=== PATIENT | female | born 1955 | race Two or more races ===

== ENCOUNTER 2019-03-22 18:04 | Inpatient (IN) | payer OTHER ==
[~2019-03-22] VITALS: Ht 157.5 cm; Wt 54.4 kg
--- NOTE | 2019-03-22 18:10 | NUR ---
[id number], FROM HOME, C/O WEAKNESS, FAILURE TO THRIVE, DEPRESSION, DENIES SI/HI, TO ER BED 9, HOOKED TO MONITOR, CHANGED TO DR SHAZIA IZAGUIRRE AT BEDSIDE
[2019-03-22 18:46] LABS: BASOPHILS # (AUTO) 0.1 /CMM (0.0-0.2); BASOPHILS % (AUTO) 0.3 % (0.0-2.0); EOSINOPHILS % (AUTO) 0.1 % (0.0-6.0); HEMATOCRIT 26 % (33-45); HEMOGLOBIN 8.5 g/dL (11.5-14.8); LYMPHOCYTES # (AUTO) 1.5 /CMM (0.8-4.8); LYMPHOCYTES % (AUTO) 6.3 % (20.0-44.0); MEAN CORPUSCULAR HGB CONC 33 g/dl (31.0-36.0); MEAN CORPUSCULAR VOLUME 106 fL (82-100); MONOCYTES # (AUTO) 0.6 /CMM (0.1-1.30); MONOCYTES % (AUTO) 2.6 % (2.0-12.0); NEUTROPHILS % (AUTO) 90.7 % (43.0-81.0); PLATELET COUNT (AUTO) 279 /CMM (150-450); RED BLOOD CELL COUNT(AUTO) 2.41 MIL/uL (4.0-5.2); WHITE BLOOD COUNT (AUTO) 23.1 K/uL (4.3-11.0)
[2019-03-22 19:18] LABS: ALANINE AMINOTRANSFERASE 13 U/L (12-78); ALBUMIN 2.2 g/dL (3.4-5.0); ALCOHOL, BLOOD < 3 mg/dL (0-0); ALKALINE PHOSPHATASE 120 U/L (46-116); ASPARTATE AMINOTRANSFERASE 19 U/L (15-37); BILIRUBIN,DIRECT 0.2 mg/dL (0.0-0.2); BILIRUBIN,TOTAL 0.3 mg/dL (0.2-1.0); CARBON DIOXIDE 11 mmol/L (21-32); CHLORIDE 88 mmol/L (98-107); GLUCOSE 89 mg/dL (74-106); POTASSIUM 4.9 mmol/L (3.5-5.1); SODIUM SERUM 124 mmol/L (136-145); TOTAL PROTEIN, SERUM 6.7 g/dL (6.4-8.2)
[2019-03-22 19:21] LABS: UREA NITROGEN, BLOOD 126 mg/dL (7-18)
--- NOTE | 2019-03-22 19:21 | NUR ---
URINE SAMPLE SENT TO LAB
[2019-03-22 19:22] LABS: CREATININE 8.4 mg/dL (0.6-1.3); SALICYLATE 1.9 mg/dL (2.8-20.0)
[2019-03-22] MEDS ORDERED: IV NS 0.9% 1,000 ML BAG IV ONE ×2 (19:30→21:30)
[2019-03-22] MEDS ORDERED: CEFTRIAXONE 1GM BAG (ER ONLY) 1 GM/50 ML PIGGYBACK IV ONE (19:30)
--- NOTE | 2019-03-22 19:30 | NUR ---
REPORT GIVEN TO OTILIO ALFORD FOR AMY
[2019-03-22 19:34] LABS: APPEARANCE,URINE Turbid (CLEAR); BILIRUBIN,URINE SMALL (NEGATIVE); BLOOD, URINE Large Ery/uL (NEGATIVE); COLOR,URINE Dark (YELLOW); KETONES,URINE 15 (NEGATIVE); LEUKOCYTE ESTERASE ,URINE Large (NEGATIVE); NITRITE, URINE Negative (NEGATIVE); PROTEIN,URINE >=300 mg/dl (NEGATIVE); UGLUCOSE Negative (NEGATIVE); UROBILINOGEN,URINE 0.2 EU/dL (0.2)
[2019-03-22 19:41] LABS: BAND % (MANUAL) 4 % (0.0-5.0); LYMPHOCYTES % (MANUAL) 6 % (16-48); MONOCYTES % (MANUAL) 2 % (0-11.0); NEUTROPHILS % (MANUAL) 88 (42-76)
[2019-03-22 19:45] LABS: ACETAMINOPHEN 0 ug/ml (10-30)
[2019-03-22] MEDS ORDERED: IV NS 0.9% 1,000 ML IV PRN (19:54)
[2019-03-22] MEDS ORDERED: CEFTRIAXONE 1GM BAG (ER ONLY) 50 ML IV ONE (19:56)
[2019-03-22] MEDS ORDERED: ACETAMINOPHEN 325 MG TABLET PO PRN (20:00)
[2019-03-22] MEDS ORDERED: ZOLPIDEM TARTRATE 5 MG TABLET PO PRN (20:00)
[2019-03-22] MEDS ORDERED: HYDROCODONE/APAP 5/325MG 1 EACH TABLET PO PRN (20:00)
[2019-03-22] MEDS ORDERED: Z GUARD REMEDY 2 OZ OINT TP PRN (20:00)
[2019-03-22] MEDS ORDERED: ONDANSETRON HCL/PF 4 MG/2 ML VIAL IVP PRN (20:00)
[2019-03-22 20:08] LABS: BACTERIA,URINE Few /HPF (None Seen); RBC,URINE 51-80 /HPF (0-2); WBC,URINE 51-80 /HPF (0-3)
--- NOTE | 2019-03-22 20:14 | NUR ---
CALLED DR BACON, LEFT VOICEMAIL.
--- NOTE | 2019-03-22 20:35 | NUR ---
MADE AWARE OF BP 85/54. NS STILL RUNNING. WILL REASSESS AFTER FLUID INFUSION
--- NOTE | 2019-03-22 20:36 | NUR ---
PAGED [facility]
--- NOTE | 2019-03-22 20:38 | NUR ---
BED ASSIGNMENT 314-1
[2019-03-22] MEDS ORDERED: METO25TA6 PO (20:50)
[2019-03-22] MEDS ORDERED: HYDR50TA3 PO (20:50)
[2019-03-22] MEDS ORDERED: VANCOMYCIN 1 GM in IV D5W 250 ML IV SCH (21:00)
[2019-03-22] MEDS ORDERED: NOREPINEPHRINE 8 MG in IV D5W 500 ML IV PRN (21:30)
--- NOTE | 2019-03-22 21:33 | NUR ---
PICC LINE NURSE AT BEDSIDE FOR INSERTION. CONSENT OBTAINED FORM PT AND .
--- NOTE | 2019-03-22 21:37 | NUR ---
ICU 253
--- NOTE | 2019-03-22 21:55 | NUR ---
CAROLINE, PICC NURSE APPROVED OF PICC LINE USE. PLACEMENT CONFIRMED BY CAROLINE
[2019-03-22] MEDS ORDERED: NOREPINEPHRINE 4 MG/4 ML AMPUL IV ONE (21:57)
--- NOTE | 2019-03-22 22:40 | NUR ---
PT BP: 98/59 ON LEVEPHED 8 MCG/MIN
--- NOTE | 2019-03-22 22:54 | NUR ---
REPORT GIVEN TO PAOLO RN FOR AMY. PT TO ICU 253
--- NOTE | 2019-03-22 23:18 | NUR ---
SPOKE WITH DR. BACON OVER THE OHONE REGARDING ADMISSION ORDERS. MD ORDERED AND APPROVED TO CONTINUE ORDERS PLACED BY DR. MARTELL.
[2019-03-22] MEDS: NOREPINEPHRINE 8 MG in IV D5W 500 ML IV PRN (23:41)
[2019-03-22] MEDS: IV NS 0.9% 1,000 ML IV PRN (23:42)
[2019-03-22] MEDS: MIRTAZAPINE 15 MG TABLET PO SCH (23:43)
--- NOTE | 2019-03-22 23:45 | NUR ---
PT TRANSPORTED TO UNIT ON [facility] EMT AND RN AT BEDSIDE W/ ACLS PROTOCOL. NAD DURING TRASNPORT.
--- NOTE | 2019-03-22 23:46 | NUR ---
REFRIGERATION BRAZER/SOLDERERLABORATORY ANIMAL FACILITY SUPERVISOR NOTES RECEIVED PATIENT FROM ER VIA [facility], BEING ADMITTED FOR SEPSIS, UTI, RENAL FAILURE. PATIENT IS AWAKE, ALERT AND ORIENTED X4, ABLE TO VERBALIZE NEEDS, DROWSY. PATIENT DENIES ANY PAIN OR DISCOMFORT AT THIS TIME. ON O2 VIA NC @ 2LPM, TOLERATING WELL, NO SIGNS AND SYMPTOMS OF RESPIRATORY DISTRESS. BEDSIDE LAWN CARE WORKER READS SINUS RHYTHM, HR CURRENTLY 80 BPM. SKIN INTACT. RIGHT UPPER ARM PICC (DOUBLE LUMEN) PATENT AND INTACT, LEVOPHED RUNNING @ 8MCG/MIN. PLAN OF CARE DISCUSSED WITH THE PATIENT, WHOM VERBALIZES UNDERSTANDING REGARDING THE PLAN OF CARE.
[2019-03-23] VITALS (64 sets, daily range): BP systolic 81–112; BP diastolic 43–66
[2019-03-23 04:17] LABS: BASOPHILS # (AUTO) 0.2 /CMM (0.0-0.2); BASOPHILS % (AUTO) 0.7 % (0.0-2.0); EOSINOPHILS % (AUTO) 0.1 % (0.0-6.0); HEMATOCRIT 25 % (33-45); LYMPHOCYTES # (AUTO) 0.7 /CMM (0.8-4.8); LYMPHOCYTES % (AUTO) 2.9 % (20.0-44.0); MEAN CORPUSCULAR HGB CONC 33 g/dl (31.0-36.0); MEAN CORPUSCULAR VOLUME 108 fL (82-100); MONOCYTES # (AUTO) 0.6 /CMM (0.1-1.30); MONOCYTES % (AUTO) 2.5 % (2.0-12.0); NEUTROPHILS # (AUTO) 23.2 /CMM (1.8-8.9); NEUTROPHILS % (AUTO) 93.8 % (43.0-81.0); PLATELET COUNT (AUTO) 271 /CMM (150-450); RED BLOOD CELL COUNT(AUTO) 2.26 MIL/uL (4.0-5.2); WHITE BLOOD COUNT (AUTO) 24.7 K/uL (4.3-11.0)
[2019-03-23 04:33] LABS: CALCIUM, SERUM 6.5 mg/dL (8.5-10.1); CREATININE 7.2 mg/dL (0.6-1.3); MAGNESIUM 1.3 mg/dL (1.8-2.4); PHOSPHORUS 5.9 mg/dL (2.5-4.9); POTASSIUM 4.1 mmol/L (3.5-5.1)
[2019-03-23 04:49] LABS: THYROID STIMULATING HORMONE 1.285 uIU/mL (0.358-3.74)
[2019-03-23 05:28] LABS: BAND % (MANUAL) 1 % (0.0-5.0); LYMPHOCYTES % (MANUAL) 2 % (16-48); MONOCYTES % (MANUAL) 4 % (0-11.0); NEUTROPHILS % (MANUAL) 93 (42-76)
[2019-03-23] MEDS ORDERED: FEE PK DOSING 1 MIN EA MC ONE (06:20)
--- NOTE | 2019-03-23 07:00 | NUR ---
GARBAGE PERSON CLOSING NOTES PATIENT RESTING COMFORTABLY IN BED. REMAINS ON LEVOPHED GTT, CURRENTLY AT 11 MCG/MIN. PATIENT DENIES ANY PAIN OR DISCOMFORT. WILL ENDORSE TH EPATIENT TO THE AM SHIFT NURSE FOR CONTINUITY OF CARE
--- NOTE | 2019-03-23 07:45 | NUR ---
ICU/RN AM SHIFT INITIAL NOTES RECEIVED PT ASLEEP IN BED, EASILY AROUSED, PT A/O X 4, NO ACUTE CHANGE OF CONDITION OR FEVER NOTED, PT DENIES ANY SYMPTOMS. ON 2L O2 VIA N/C SATURATING @ 99%, LUNG SOUNDS DIMINISHED, RESPIRATIONS EVEN & UNLABORED. ON TELE MONITORING, SINUS RHYTHM, HR 71. PT ON ON GOING INFUSION OF LEVOPHED @ 11MCG/MIN WITH BP SUSTAINING 111/50, ALSO INFUSING NS @ 125CC/HR, PICC LINE IS PATENT WITH NO S/S OF INFECTION. PT IS COMFORTABLE AT THIS TIME, PT IS RE-ORIENTED TO HER SURROUNDINGS. SCHEDULED AM MEDS TO BE GIVEN. CL WITHIN REACHED AND SAFETY MAINTAINED. ON GOING MONITORING.
[2019-03-23] MEDS: IV NS 0.9% 1,000 ML IV PRN ×2 (07:47→17:11)
[2019-03-23] MEDS: PANTOPRAZOLE 40 MG TABLET.DR PO SCH (07:48)
--- NOTE | 2019-03-23 08:03 | NUR ---
ICU/RN ROUNDS - DR. BACON UPDATED PT'S CONDITION. PT SEEN & EXAMINED BY DR. BACON. NO NEW ORDERS RECEIVED AT THIS TIME. ON GOING MONITORING. Addendum: 03/23/19 at 0819 by CHINMAY ALVAREZ RN ADDENDUM: RECEIVED VERBAL ORDER FROM DR. BACON TO PLACE VEGA CATHETER TO PT. NOTED AND CARRIED OUT.
[2019-03-23] MEDS ORDERED: CEFEPIME 1 GM in IV D5W 50 ML IV SCH ×2 (08:30→18:00)
[2019-03-23] MEDS: Magnesium 1GM/D5W 100ML PREMIX 100 ML IV SCH ×2 (09:27→11:17)
[2019-03-23 09:43] LABS: CREATININE, URINE 45.2 MG/DL (30.0-125.0)
[2019-03-23 09:48] LABS: APPEARANCE,URINE Cloudy (CLEAR); BILIRUBIN,URINE Negative (NEGATIVE); BLOOD, URINE Large Ery/uL (NEGATIVE); COLOR,URINE Yellow (YELLOW); KETONES,URINE Negative (NEGATIVE); LEUKOCYTE ESTERASE ,URINE Small (NEGATIVE); NITRITE, URINE Negative (NEGATIVE); PH,URINE 5.5 (5.0-8.0); PROTEIN,URINE >=300 mg/dl (NEGATIVE); UGLUCOSE Negative (NEGATIVE); UROBILINOGEN,URINE 0.2 EU/dL (0.2)
[2019-03-23 09:59] LABS: SQUAMOUS EPITHELIAL CELL,UR Few /HPF (None Seen); URINE AMORPHOUS URATE Moderate /HPF (None Seen)
[2019-03-23 10:00] LABS: BACTERIA,URINE Few /HPF (None Seen)
[2019-03-23] MEDS: NOREPINEPHRINE 8 MG in IV D5W 500 ML IV PRN ×2 (10:48→20:40)
[2019-03-23 12:20] LABS: EOSINOPHIL,URINE None Seen
--- NOTE | 2019-03-23 16:00 | NUR ---
ICU/RN PM ROUNDS PM CARE PROVIDED, NO ACUTE CHANGE OF CONDITION, BP SUSTAINING. ON GOING MONITORING.
[2019-03-23] MEDS: LACTOBACILLUS RHAMNOSUS GG 1 EACH CAP.SPRINK PO SCH (17:11)
--- NOTE | 2019-03-23 19:25 | NUR ---
ICU/RN AM SHIFT END NOTES ALL NEEDS MET. NO ACUTE CHANGE OF CONDITION NOTED DURING THE SHIFT. IMPROVED URINE OUTPUT, APPETITE INCREASED AT DINNER TIME. PT ENDORSED TO PM NURSE TO CONTINUE CARE. CL WITHIN REACHED AND SAFETY MAINTAINED.
--- NOTE | 2019-03-23 19:30 | NUR ---
BRAKE ASSEMBLER INITIAL SHIFT NOTES RECEIVED PATIENT IN BED, AWAKE, ALERT AND ORIENTED X4, BUT DROWSY. PATIENT ABLE TO VERBALIZE NEEDS. BREATHING EVEN AND NONLABORED, TOLERATING O2 VIA NC @ 2LPM, NO RESPIRATORY DISTRESS NOTED. ON LEVOPHED GTT 13MCG/MIN, NS @ 125ML/HR. SINUS RHYTHM ON MONITOR. VEGA CATHETER PATENT AND INTACT, DRAINING CLOUDY YELLOW URINE VIA GRAVITY. WILL CONTINUE TO CLOSELY MONITOR
[2019-03-23] MEDS ORDERED: CEFTRIAXONE 1 G in IV D5W 50 ML IV SCH (20:00)
[2019-03-23] MEDS: MIRTAZAPINE 15 MG TABLET PO SCH (22:45)
[2019-03-23] MEDS: CEFEPIME 1 GM in IV D5W 50 ML IV SCH (22:45)
[2019-03-24] VITALS (50 sets, daily range): BP systolic 93–134; BP diastolic 44–65
--- NOTE | 2019-03-24 | NUR ---
BUY BOAT OPERATOR NOTES PATIENT RESTING IN BED, COMFORTABLE AT THIS TIME, DENIES ANY PAIN OR DISCOMFORT. REMAINS ON LEVOPHED GTT @ 13MCG/MIN. WILL CONTINUE TO CLOSELY MONITOR
[2019-03-24] MEDS: IV NS 0.9% 1,000 ML IV PRN ×2 (02:02→18:21)
--- NOTE | 2019-03-24 04:00 | NUR ---
LEGAL INVESTIGATOR NOTES OFFERED BED BATH, BUT PATIENT POLITELY REFUSED, STATING "I'M COLD RIGHT NOW." DIAPER CLEAN AND DRY AT THIS TIME, WARM BLANKET GIVEN, PATIENT REPOSITIONED FOR COMFORT
[2019-03-24 04:26] LABS: BASOPHILS % (AUTO) 0.2 % (0.0-2.0); EOSINOPHILS % (AUTO) 0.1 % (0.0-6.0); HEMATOCRIT 24 % (33-45); HEMOGLOBIN 7.8 g/dL (11.5-14.8); LYMPHOCYTES # (AUTO) 0.7 /CMM (0.8-4.8); LYMPHOCYTES % (AUTO) 3.8 % (20.0-44.0); MEAN CORPUSCULAR HGB CONC 33 g/dl (31.0-36.0); MEAN CORPUSCULAR VOLUME 108 fL (82-100); MONOCYTES # (AUTO) 0.4 /CMM (0.1-1.30); MONOCYTES % (AUTO) 2.1 % (2.0-12.0); NEUTROPHILS # (AUTO) 17.5 /CMM (1.8-8.9); NEUTROPHILS % (AUTO) 93.8 % (43.0-81.0); PLATELET COUNT (AUTO) 262 /CMM (150-450); WHITE BLOOD COUNT (AUTO) 18.6 K/uL (4.3-11.0)
[2019-03-24 04:50] LABS: BILIRUBIN,TOTAL 0.2 mg/dL (0.2-1.0); CALCIUM, SERUM 6.4 mg/dL (8.5-10.1); CREATININE 6.4 mg/dL (0.6-1.3); MAGNESIUM 1.7 mg/dL (1.8-2.4); POTASSIUM 3.6 mmol/L (3.5-5.1); TOTAL PROTEIN, SERUM 5.1 g/dL (6.4-8.2)
[2019-03-24 04:57] LABS: ALBUMIN 1.4 g/dL (3.4-5.0)
[2019-03-24 05:20] LABS: URIC ACID 6.8 mg/dL (2.6-7.2)
[2019-03-24] MEDS: NOREPINEPHRINE 8 MG in IV D5W 500 ML IV PRN ×2 (06:01→16:11)
--- NOTE | 2019-03-24 07:00 | NUR ---
DISTRIBUTION CENTER ADMINISTRATOR CLOSING NOTES NO ACUTE CHANGES THROUGHOUT THE SHIFT. PATIENT REMAINS ON LEVOPHED GTT @ 13MCG/MIN. URINE OUTPUT = 500ML. WILL ENDORSE THE PATIENT TO THE AM SHIFT NURSE FOR CONTINUITY OF CARE
--- NOTE | 2019-03-24 07:45 | NUR ---
ICU/RN AM SHIFT INITIAL NOTES RECEIVED PT AWAKE IN BED, PT A/O X 4, NO ACUTE CHANGE OF CONDITION NOTED, PT DENIES ANY SYMPTOMS. ON 2L O2 VIA N/C SATURATING @ 98%, LUNG SOUNDS CLEAR, RESPIRATIONS EVEN & UNLABORED. ON TELE MONITORING, SINUS RHYTHM, HR 68. PT ON ON GOING INFUSION OF LEVOPHED @ 13CG/MIN WITH BP SUSTAINING, ALSO INFUSING NS @ 125CC/HR, PICC LINE IS PATENT WITH NO S/S OF INFECTION. VEGA CATHETER INTACT WITH CLOUDY YELLOW URINE OUTPUT. PT IS COMFORTABLE AT THIS TIME, SCHEDULED AM MEDS TO BE GIVEN. CL WITHIN REACHED AND SAFETY MAINTAINED. ON GOING MONITORING.
--- NOTE | 2019-03-24 08:10 | NUR ---
ICU/RN ROUNDS - DR. BACON PT SEN & EXAMINED BY DR. BACON. WITH VERBAL ORDERS RECEIVED TO GIVE PT 1 UNIT OF PRBC, FLUID RESTRICTION OF 1 LITER PER DAY AND TO KEEP SBP ABOVE 95. ORDERS NOTED AND CARRIED.
[2019-03-24] MEDS: PANTOPRAZOLE 40 MG TABLET.DR PO SCH (08:36)
[2019-03-24] MEDS: LACTOBACILLUS RHAMNOSUS GG 1 EACH CAP.SPRINK PO SCH ×2 (08:36→18:22)
[2019-03-24] MEDS: Magnesium 1GM/D5W 100ML PREMIX 100 ML IV SCH ×2 (08:36→10:54)
[2019-03-24] MEDS: CEFEPIME 1 GM in IV D5W 50 ML IV SCH ×2 (09:38→21:07)
--- NOTE | 2019-03-24 17:30 | NUR ---
ICU/RN TRANSFUSION PT TOLERATED BLOOD TRANSFUSION, NO ADVERSE REACTION NOTED DURING AND AFTER INFUSION.
--- NOTE | 2019-03-24 19:00 | NUR ---
RECEIVED PATIENT ASLEEP BUT EASILY AWAKENS,ALERT, CONVERSES,COHERENT AND APPROPRIATE ,SPEAKS VERY SOFTLY, VERY WEAK BUT ABLE TO MOVE ALL EXTREMITIES.NOT IN ANY DISTRESS, DENIES ANY PAIN. ON LEVOPHED DRIP FOR BP SUPPORT ( MAINTAIN SBP =95) ,TITRATE TOLERATED NOW AT 13 MCG/MIN. COMFORT CARE DONE,NEEES ATTENDED.
--- NOTE | 2019-03-24 19:21 | NUR ---
ICU/RN AM SHIFT END NOTES ALL NEEDS MET. NO ADVERSE CHANGE OF CONDITION NOTED DURING THE SHIFT. PT SLOWLY PROGRESSIVELY IMPROVING. ENDORSED TO PM NURSE TO CONTINUE CARE.
[2019-03-24] MEDS: MIRTAZAPINE 15 MG TABLET PO SCH (21:08)
--- NOTE | 2019-03-24 21:30 | NUR ---
CARE TRANSFERED TO MARY ALFORD.PATIENT REMAINS STABLE.
[2019-03-25] VITALS (61 sets, daily range): BP systolic 93–129; BP diastolic 44–76
[2019-03-25] MEDS: NOREPINEPHRINE 8 MG in IV D5W 500 ML IV PRN (02:06)
[2019-03-25 04:26] LABS: BASOPHILS % (AUTO) 0.1 % (0.0-2.0); EOSINOPHILS % (AUTO) 0.1 % (0.0-6.0); HEMATOCRIT 29 % (33-45); HEMOGLOBIN 9.8 g/dL (11.5-14.8); LYMPHOCYTES # (AUTO) 0.7 /CMM (0.8-4.8); LYMPHOCYTES % (AUTO) 3.5 % (20.0-44.0); MEAN CORPUSCULAR HGB CONC 34 g/dl (31.0-36.0); MEAN CORPUSCULAR VOLUME 103 fL (82-100); MONOCYTES # (AUTO) 0.3 /CMM (0.1-1.30); MONOCYTES % (AUTO) 1.7 % (2.0-12.0); NEUTROPHILS # (AUTO) 19.3 /CMM (1.8-8.9); NEUTROPHILS % (AUTO) 94.6 % (43.0-81.0); PLATELET COUNT (AUTO) 225 /CMM (150-450); RED BLOOD CELL COUNT(AUTO) 2.83 MIL/uL (4.0-5.2); WHITE BLOOD COUNT (AUTO) 20.4 K/uL (4.3-11.0)
[2019-03-25 04:41] LABS: CALCIUM, SERUM 6.7 mg/dL (8.5-10.1); CREATININE 5.4 mg/dL (0.6-1.3); POTASSIUM 3.2 mmol/L (3.5-5.1)
--- NOTE | 2019-03-25 07:45 | NUR ---
ICU/RN INITIAL NOTES,AM RECEIVED BEDSIDE REPORT. PT AWAKE, ALERT, FOLLOWS COMMANDS. ON 2L O2 VIA N/C, RESPIRATIONS EVEN & UNLABORED. ON TELE MONITORING, SINUS RHYTHM. PT ON ON GOING INFUSION OF LEVOPHED @ 8 MCG/MIN WITH BP SUSTAINING, ALSO INFUSING NS @ 100CC/HR, PICC LINE IS PATENT WITH NO S/S OF INFECTION. VEGA CATHETER INTACT WITH CLOUDY YELLOW URINE OUTPUT. PT IS COMFORTABLE AT THIS TIME, ALL NEEDS WILL BE ATTENDED TO, CL WITHIN REACHED AND SAFETY MAINTAINED. ON GOING MONITORING.
[2019-03-25] MEDS: LACTOBACILLUS RHAMNOSUS GG 1 EACH CAP.SPRINK PO SCH ×2 (08:02→16:45)
[2019-03-25] MEDS: PANTOPRAZOLE 40 MG TABLET.DR PO SCH (08:02)
[2019-03-25 08:06] LABS: *SPE A/G RATIO 0.6 (0.7-1.7); *SPE ALBUMIN 1.5 g/dL (2.9-4.4); *SPE ALPHA-1-GLOBULIN 0.3 g/dL (0.0-0.4); *SPE BETA GLOBULIN 0.9 g/dL (0.7-1.3); *SPE GLOBULIN, TOTAL 2.6 g/dL (2.2-3.9); *SPE M-SPIKE Not Observed g/dL (Not Observed); *SPEGAMMA GLOBULIN 0.3 g/dL (0.4-1.8)
[2019-03-25] MEDS ORDERED: POTASSIUM CHLORIDE 20 MEQ TAB.PRT.SR PO ONE (09:00)
[2019-03-25] MEDS: CEFEPIME 1 GM in IV D5W 50 ML IV SCH ×2 (09:07→22:02)
[2019-03-25] MEDS: SODIUM CHLORIDE 1000 MG TABLET PO SCH ×3 (09:17→16:45)
--- NOTE | 2019-03-25 11:00 | NUR ---
ICU/RN: PER MD ORDERS ABG DONE. RESULTS RELAYED TO . NO NEW ORDERS AT THIS TIME. WILL CONTINUE TO MONITOR.
--- NOTE | 2019-03-25 11:02 | NUR ---
RT NOTE ABG COMPLETED @ 10:50 AND ANALYZED @ 10:53 PATIENT WAS LETHARGIC AND WAS ON OXYGEN VIA NASAL CANNULA @ 2.5 L ABG RESULTS WERE PH 7.1 CO2 15.5 PO2 107 HCO-3 5.9 BE -20.1 RN WAS NOTIFIED.
[2019-03-25] MEDS: IV NS 0.9% 1,000 ML IV PRN (12:23)
[2019-03-25 14:07] LABS: PTH, INTACT 179 pg/mL (15-65)
--- NOTE | 2019-03-25 19:02 | NUR ---
ICU/RN ENDING NOTES,AM BEDSIDE REPORT WILL ENDORSED TO NIGHT NURSE FOR AMY. ALL NEEDS ATTENDED TO, SAFETY MEASURES TAKEN. PT ON NASAL CANULA, NO DISTRESS, TOLERATING WELL. SINUS ON TELE. BED IN LOW POSITION, SIDE RAILS UP, CALL LIGHT WITHIN REACH. WILL CONTINUE CARE.
--- NOTE | 2019-03-25 20:00 | NUR ---
ICU/RN NOTES RECEIVED PT AWAKE IN BED, PT A/O X 4, NO SOB NO DISTRESS NOTED BREATHING EVEN AND UNLABORED ,NO ACUTE CHANGE OF CONDITION NOTED, PT DENIES ANY SYMPTOMS. ON 2L O2 VIA N/C SATURATING @ 95%, LUNG SOUNDS CLEAR, ON TELE MONITORING, SINUS RHYTHM, HR 75. PT ON IVF NS @ 100CC/HR, PICC LINE IS PATENT WITH NO S/S OF INFECTION. VEGA CATHETER INTACT WITH YELLOW URINE OUTPUT. PT IS COMFORTABLE AT THIS TIME, DUE MEDS TO BE GIVEN. CALL LIGHT WITHIN REACH AND SAFETY MAINTAINED. V/S STABLE AFEBRILE ,CONTINUE TO MONITOR.
[2019-03-25] MEDS ORDERED: VANCOMYCIN 500 MG in IV D5W 100 ML IV SCH (21:00)
[2019-03-25] MEDS ORDERED: MIRTAZAPINE 15 MG TABLET PO SCH (22:00)
[2019-03-26] VITALS (16 sets, daily range): BP systolic 89–122; BP diastolic 43–68
[2019-03-26 04:36] LABS: BASOPHILS % (AUTO) 0.2 % (0.0-2.0); EOSINOPHILS % (AUTO) 0.1 % (0.0-6.0); HEMATOCRIT 27 % (33-45); HEMOGLOBIN 8.9 g/dL (11.5-14.8); LYMPHOCYTES # (AUTO) 0.4 /CMM (0.8-4.8); LYMPHOCYTES % (AUTO) 2.6 % (20.0-44.0); MEAN CORPUSCULAR HGB CONC 33 g/dl (31.0-36.0); MEAN CORPUSCULAR VOLUME 102 fL (82-100); MONOCYTES # (AUTO) 0.3 /CMM (0.1-1.30); NEUTROPHILS # (AUTO) 14.1 /CMM (1.8-8.9); NEUTROPHILS % (AUTO) 95.1 % (43.0-81.0); PLATELET COUNT (AUTO) 179 /CMM (150-450); RED BLOOD CELL COUNT(AUTO) 2.64 MIL/uL (4.0-5.2); WHITE BLOOD COUNT (AUTO) 14.8 K/uL (4.3-11.0)
[2019-03-26 04:56] LABS: CALCIUM, SERUM 6.8 mg/dL (8.5-10.1); CREATININE 4.7 mg/dL (0.6-1.3); MAGNESIUM 1.6 mg/dL (1.8-2.4); POTASSIUM 3.2 mmol/L (3.5-5.1)
[2019-03-26] MEDS: IV NS 0.9% 1,000 ML IV PRN (05:31)
--- NOTE | 2019-03-26 07:22 | NUR ---
ARTIST MODEL NOTES PTS IN BED AWAKE AND RESPONSIVE , ON 2LITERS OF 02 VIA NC , NO SOB NO DISTRESS NOTED , ENDORSE TO MANDO RN FOR CONTINUITY OF CARE.
--- NOTE | 2019-03-26 07:30 | NUR ---
RN NOTES RECEIVED PT ASLEEP IN BED, EASILY AROUSED, PT A/O X 4, ABLE TO RESPOND APPROPRIATELY. ON 2L O2 VIA N/C SATURATING @ 98%, RESPIRATIONS EVEN & UNLABORED. SINUS RHYTHM ON THE TELEMONITOR WITH HR ON THE 90'S AT THIS TIME.DENIES PAIN OR DISCOMFORT AT THIS TIME. PICC LINE ON THE AMBREEN, IN PLACE, DRESSING DRY AND INTACT. NO SIGNS OF INFECTION NOTED. WITH ONGOING NS @ 100CC/HR. VEGA CATETHER IN PLACE AND DRAINING TO CLEAR, TEA COLORED URINE. PATIENT ENCOURAGE TO VERBALIZE FEELINGS AND CONCERNS, CALL FOR HELP/ASSISTANCE. SAFETY MEASURES OBSERVED AND MAINTAINED. CALL LIGHT PLACED WITHIN REACH. WILL CONTINUE TO MONITOR PATIENT AND ANTICIPATE NEEDS
[2019-03-26] MEDS: SODIUM CHLORIDE 1000 MG TABLET PO SCH ×2 (08:33→12:48)
[2019-03-26] MEDS: LACTOBACILLUS RHAMNOSUS GG 1 EACH CAP.SPRINK PO SCH (08:33)
[2019-03-26] MEDS: PANTOPRAZOLE 40 MG TABLET.DR PO SCH (08:33)
[2019-03-26] MEDS ORDERED: POTASSIUM CHLORIDE 20 MEQ TAB.PRT.SR PO ONE (09:30)
[2019-03-26] MEDS: Magnesium 1GM/D5W 100ML PREMIX 100 ML IV SCH ×2 (09:48→11:19)
[2019-03-26] MEDS ORDERED: COSYNTROPIN 0.25 MG/VIAL VIAL IV ONE (10:00)
[2019-03-26] MEDS ORDERED: CEFTRIAXONE 2 G in IV D5W 100 ML IV SCH (10:00)
--- NOTE | 2019-03-26 10:45 | NUR ---
RN NOTES CALLED SON BUT PHONE NUMBER IS NOT ACTIVE. CALLED KAITLYNN HIGGINBOTHAM (DAUGHTER ) WAS ABLE TO OBTAINED CONSENT FOR BLOOD TRANSFUSION AFTER EXPLAINING THE SITUATION. CONSENT VERIFIED WITH PRASHANTH VARELA. Addendum: 03/26/19 at 1128 by MANDO LINO RN ERROR IN CHARTING. INTENDED FOR A DIFFERENT PATIENT
[2019-03-26] MEDS ORDERED: Potassium Chloride 20 MEQ in IV NS 0.9% 1,000 ML IV PRN (11:30)
--- NOTE | 2019-03-26 14:20 | NUR ---
RN NOTES PATIENT BROUGHT TO BRIT WITH [employer] [facility]UITY PER MD'S ORDER AT ROOM 115-1. PATIENT NOT ON ANY FORM OF DISTRESS. NO COMPLAINTS OF PAIN. CALL LIGHT PLACED WITHIN REACH. WILL CONTINUE TO MONITOR PATIENT
--- NOTE | 2019-03-26 17:10 | NUR ---
RN NOTE: RECEIVED AN ORDER FROM DR. BACON THAT THE PATIENT WILL BE TRANSFER TO [facility] DUE TO INSURANCE ISSUE. PATIENT'S DEIDRE MADE AWARE AND WAS GIVEN DETAILS OF THE PATIENT'S DISCHARGE TRANSFER AT THE OTHER HOSPITAL. PER RN CVOR EMILY, PATIENT WAS ACCEPTED AT [facility] AND ACCEPTING MD WAS DR. BACON TO ROOM 237-B. REPORT WAS GIVEN TO PRASHANTH OLMEDO FOR CONTINUITY OF CARE.
--- NOTE | 2019-03-26 17:55 | NUR ---
RN NOTE: PATIENT WAS DISCHARGE TO [facility] VIA AMBULANCE ACCOMPANIED BY 3 casting repairer OF [facility]IA GURNEY. PATIENT SIGNED ALL HER DISCHARGE PAPERWORK AND ALL BELONGINGS WERE RELEASED WITH HER INCLUDING THE FULL DENTURE WITH THE PATIENT. DEIDRE WAS INFORMED VIA TELEPHONE CALL REGARDING THE TRANSFER TO ANOTHER [facility].
== END 2019-03-26 18:00 | disposition short-term general hospital (02) | DRG 871 ==
LOC: ER 18:07 → ICU 21:41 → MEDSG1 03-26 14:10
PROVIDERS: ATTEND Internal Medicine
PROC: B548ZZA Ultrasonography of Superior Vena Cava, Guidance (ICD-10-PCS; principal; 2019-03-22)
PROC: 02HV33Z Insertion of Infusion Device into Superior Vena Cava, Percutaneous Approach (ICD-10-PCS; principal; 2019-03-22)
PROC: 30233N1 Transfusion of Nonautologous Red Blood Cells into Peripheral Vein, Percutaneous Approach (ICD-10-PCS; 2019-03-24)
DX: A41.51 Sepsis due to Escherichia coli [E. coli] (principal); R65.21 Severe sepsis with septic shock; N17.0 Acute kidney failure with tubular necrosis; E43 Unspecified severe protein-calorie malnutrition; N39.0 Urinary tract infection, site not specified; E87.1 Hypo-osmolality and hyponatremia; Z68.1 Body mass index [BMI] 19.9 or less, adult; E87.2 Acidosis; F33.2 Major depressive disorder, recurrent severe without psychotic features; E86.0 Dehydration; I10 Essential (primary) hypertension; E83.42 Hypomagnesemia; E87.6 Hypokalemia; E86.1 Hypovolemia; D53.9 Nutritional anemia, unspecified; E88.09 Other disorders of plasma-protein metabolism, not elsewhere classified; Z68.21 Body mass index [BMI] 21.0-21.9, adult; D50.0 Iron deficiency anemia secondary to blood loss (chronic); D71 Functional disorders of polymorphonuclear neutrophils
CPT/HCPCS: 36415; 71045-TC; 76770-TC; 80048-TC; 80053-TC; 80061-TC; 80076-TC; 80305; 81000-TC; 82533; 82550-TC; 82570-TC; 82728-TC; 83540-TC; 83605-TC; 83735-TC; 83935-TC; 83970; 84100-TC; 84155; 84155-TC; 84165; 84300-TC; 84443-TC; 84550-TC; 85025-TC; 86850-TC; 86921-TC; 87040-TC; 87081-TC; 87086-TC; 87186-TC; C1751; G0378; G0480; J0692; J0696; J0834; J3370; J3475; J3480; J7030; J7050; J7060; P9016-BL